=== PATIENT | male | born 1955 ===

== ENCOUNTER → 2023-12-10 09:54 | Outpatient (REF) | payer MEDICARE, SELFPAY ==
--- NOTE | 2023-12-10 10:04 | CA_ITS ---
Transthoracic Echocardiogram Patient (Last, First, Middle): Christiano Cortez, Gender: Male Date of : 1955 Age: 68 Procedure Date: 12/10/2023 Procedure Type: Transthoracic Echocardiogram Location: OP Height: 180.34 cm Weight: 104.33 kg BSA: 2.24 m2 Heart Rate: 72 bpm BP: 116 / 85 mmHg Medical Transcriptionist: LOUISA Referring MD: Susannah Olivas MD Symptoms: TIA G45.9 Study Quality: Adequate ECG Rhythm: Sinus Conclusions: - The left ventricular systolic function is normal. The calculated ejection fraction is 64% by biplane method. - There is moderate mitral annular calcification. - There is mild calcification of the aortic valve. - There is mild dilatation of the ascending aorta measuring 4.20 cm. Findings Left Ventricle Normal left ventricular cavity size. There is normal left ventricular wall thickness. The left ventricular systolic function is normal. The calculated ejection fraction is 64% by biplane method. There is no evidence of regional wall motion abnormalities. Evidence suggests grade I (mild) diastolic dysfunction. LV peak GLS -17.2%. Right Ventricle Mildly increased right ventricular cavity size. There is normal right ventricular systolic function. Atria Both atria are normal in size. Aortic Valve There is mild calcification of the aortic valve. There is no aortic valve stenosis. There is no aortic valve regurgitation. Mitral Valve There is moderate mitral annular calcification. There is no mitral valve regurgitation. There is no mitral valve stenosis. Pulmonic Valve The pulmonic valve is likely normal. Tricuspid Valve Normal tricuspid valve structure. There is trace tricuspid valve regurgitation. There is no evidence of pulmonary hypertension. Great Vessels The aortic arch is normal in size. There is mild dilatation of the ascending aorta measuring 4.20 cm. Venous The inferior vena cava is normal in size and collapses greater than 50% with inspiration. Pericardium/Pleural There is no evidence of pericardial effusion. Prior Study Comparison No prior study available for comparison. Measurements 2D Linear Measurements IVSd: 0.86 0.6-0.9/0.6-1.0 cm LVIDd: 4.60 3.9-5.3/4.2-5.9 cm LVIDd Index: 2.05 2.4-3.2/2.2-3.1 cm/m2 LVIDs: 3.21 2.0-3.6 cm LVPWd: 1.01 0.7-1.1 cm LA Diam: 2.90 2.7-3.8/3.0-4.0 cm LAIDs Index: 1.29 1.5-2.3 cm/m2 LV Mass: 180.84 67-162/88-224 g LV Mass Index: 80.73 43-95/49-115 g/m2 LVOT Diam: 2.30 3.0+(-)1.3 cm 2D Systolic Function EF 4C: 66.90 >55% EF 2C: 61.80 >55% EF BiP: 64.10 >55% Mitral Valve MV VTI: 0.51 MV Pk Davi: 1.47 MV Mn Davi: 0.86 MV Pk Grad: 9.00 MV Mn Grad: 3.00 MV Pk E: 1.10 MV PK A: 1.40 MV Decel Time: 472.00 E/A: 0.80 E'Lateral: 6.85 E'Medial: 4.46 E/E' Med: 24.70 E/E' Lat: 16.10 PHT: 138.00 MVA PHT: 1.59 MVA Continuity: 2.28 Decel [place]: 2.34 Aortic Valve AoV Pk Davi: 1.80 AoV Mn Davi: 1.19 AoV VTI: 0.39 AoV Pk Grad: 13.00 Aov Mn Grad: 7.00 SAGAR Cont.VTI: 2.99 LVOT LVOT Pk Davi: 1.22 LVOT Mn Davi: 0.87 LVOT VTI: 0.28 LVOT Pk Grad: 6.00 LVOT Mn Grad: 4.00 LVOT Diam: 2.30 LVOT Area: 4.15 Diastolic Function MV Pk E: 1.10 MV Pk A: 1.40 E/A: 0.80 E'Medial: 4.46 E/E' Med: 24.70 E' Laterial: 6.85 E/E' Lat: 16.10 Right Ventricle TAPSE (mm): 18.50 TVS' Davi: 11.70 Tricuspid Valve RA Press: 3.00 Great Vessels Aorta Sinus of Valsalva: 3.85 2.0-3.[address] Ridge: 3.33 1.7-3.4 cm Ao Asc: 4.20 2.1-3.4 cm Ao Arch: 3.20 Updated in Other Vendor System with Status of Final Wilfredo Butts MD electronically signed on 12/11/2023 8:43:59 AM with status of Final
== END ==
LOC: HO.CARD 09:54
PROVIDERS: PCP Student in an Organized Health Care Education/Training Program; Visit Provider Student in an Organized Health Care Education/Training Program
DX: G45.9 Transient cerebral ischemic attack, unspecified (principal)
CPT/HCPCS: 93306; 93356

== ENCOUNTER → 2023-12-10 10:04 | Outpatient (BNV) | payer MEDICARE, SELFPAY | PROVIDERS: PCP Student in an Organized Health Care Education/Training Program; Visit Provider Internal Medicine | DX: I34.81 Nonrheumatic mitral (valve) annulus calcification (principal); I35.8 Other nonrheumatic aortic valve disorders | CPT/HCPCS: 93306 ==

== ENCOUNTER 2025-02-04 09:20 | Outpatient (AMB) | payer MEDICARE, SELFPAY ==
--- NOTE | 2025-02-04 09:26 | MHC.OFFVIS ---
Vital Signs 02/04/25 09:29 Height 5 ft 10 in Weight 264 lb BMI 37.9 BP 101/65 Blood Pressure Location Lt brachial Position Sitting Pulse 79 Intake Visit Reasons: Colonoscopy screening Intake Note: New patient in office today Cc: Patient reports occasional diarrhea, and abd pain sometimes. Denies other GI symptoms today. Last colonoscopy about 3 years in [place], [place] per patient. Social Media Job Titles Required: No Accompanied by: Self / Same As Patient Allergies cefaclor Allergy (Severe, Verified 02/04/25 09:31) Anaphylaxis HPI HPI Colonoscopy screening: Details: Patient is a 69-year-old male who comes in today for colonoscopy screening. He reports intermittent ab pain approx 3x/months. Relieved with antacid. Denies regurgitation, heart burn or dsyphagia He reports diarrhea approx 2x/month. Type 6 on Petroleum stool chart. Reports mx episode can occur in a day, unable to quantity # of occurrence Associated symptoms: denies Aggravating factors: sugar free or alcohols 69-year-old male here for preprocedural meeting to discuss a screening colonoscopy. He is [facility] by [facility] [place]. PMX Diabetes-on Trulicity Memory loss Supracondylar fracture Depression BPH Constipation * SURGICAL HISTORY See history in chart Colonoscopy-2021 [facility] negative study * ALLERGIES Cefaclor * LABS SUPPLIED BY PCP: 07/2024 unremarkable CBC, unremarkable hepatic panel, unremarkable renal panel, TSH 3.79 TODAY'S VISIT (with Jeannette) Alleviating attempts: imdoium if severe Patient denies: systemic symptoms, n/v, appetite changes, unintentional wt loss, melena/hematochezia or bladder changes Share last colonoscopy was 3 years ago in [place], [place]. Unsure of results. He denies cardiopulmonary history. Also denies difficulty with anesthesia/sedation. Reports most recent a1c was stable, able to remove glipizide from regimen last month. Shares Glucophage was discontinued awhile ago . he denies daily blood glucose checks. Social hx: 1oz of Congolese whiskey approx 1-2x/week marijuana for insomnia up to three days/weekf, denies other recreational drug use Non-smoker Denies personal CA Family hx: Denies family hx of gallbladder disease Father lung CA and ? ear related CA. [place] early 70s [facility] Medical History (Updated 02/04/25 @ 10:48 by ADELINA Chappell) Abdominal pain Diarrhea Surgical History S/P bariatric surgery H/O elbow surgery H/O Spinal surgery H/O colonoscopy Family History Father Lung cancer Paternal Aunt Cancer Social History Alcohol intake: current Alcohol intake frequency: holidays/special occasions only Patient Tobacco Use Status: Never used Tobacco Use of substances other than those prescribed or required for medical reasons: No Review of Systems Card Reports no additional complaints Resp Reports no additional complaints GI Reports abdominal pain, Reports bloating and Reports diarrhea Physical Exam Vital Signs: Last Vital Signs Pulse 79 02/04/25 09:29 BP 101/65 02/04/25 09:29 BMI result Body Mass Index 37.9 Const General: healthy appearing, no acute distress and well developed Nutritional Appearance: well nourished Orientation/consciousness: patient oriented x3 HEENT Head: Yes normal to inspection, Yes normocephalic and Yes atraumatic Face and sinus: Yes normal facial exam Eyes General: appearance normal, both eyes and all related structures Neck Neck: Yes normal visual inspection and Yes full ROM Resp Effort & Inspection: normal respiratory effort, able to speak in complete sentences, no tracheal deviation and symmetric chest movement Auscultation: clear to auscultation bilaterally Cardio Jugular venous distension: no JVD Rate: regular rate Rhythm: regular rhythm Heart sounds: S1 normal heart sound present, S2 normal heart sound present, no gallops and no murmurs GI Inspection: Yes normal to inspection and No distended Palpation (GI): Soft to palpation, not firm, nontender, No hepatosplenomegaly present and Other GI palpation findings present (non-tender) Auscultation: normal bowel sounds Neuro General: patient oriented x3 Gait exam (Neuro): Normal gait present and Assistive device used (cane) Psych Appearance: grossly normal Mental Status: mental status grossly normal Speech and movement: Normal speech and movement present Affect: normal affect Attitude: cooperative Thought process: Normal thought process present Thought content: Normal thought content present Insight: Good insight present (Psych) Judgement: Good judgement present (Psych) Assessment & Plan Assessment & Plan (1) Diarrhea: Code(s): R19.7 - Diarrhea, unspecified Category: Medical Plan: diet induced. Encouraged to read labels to avoid triggers. Continue supportive care. monitor symptoms (2) Abdominal pain: Code(s): R10.9 - Unspecified abdominal pain Category: Medical Plan: infrequent. DDX reviewed: gallbladder VS medication induced VS ?. Discussed ultrasound to eval gallbladder. However, shared decision-making to hold given infrequent symptoms and negative family history. Colonoscopy as below. Continue supportive care. Monitor. (3) Preoperative clearance: Code(s): Z01.818 - Encounter for other preprocedural examination Plan: Basic and monitoring labs today. Colonoscopy screening. (4) Encounter for screening colonoscopy: Code(s): Z12.11 - Encounter for screening for malignant neoplasm of colon Plan: Results of last colonoscopy unknown. Given intermittent abdominal pain and diarrhea will proceed with colonoscopy. Education on prep-patient understands which medications to hold prior to procedure. Nursing will follow-up closer to procedure to review prep education. (5) Diabetes: Code(s): E11.9 - Type 2 diabetes mellitus without complications Category: Medical Plan: [id number]. Will obtain updated A1c. Reviewed medications to hold prior to procedure-metformin, day of; Mounjaro 7 days prior. (6) Pre-op examination: Code(s): Z01.818 - Encounter for other preprocedural examination Category: Medical Plan (with Jeannette) Alleviating attempts: Imodium if severe Patient denies: systemic symptoms, n/v, appetite changes, unintentional wt loss or melena/hematochezia Share last colonoscopy was 3 years ago in [place], [place]. Unsure of results. He denies cardiopulmonary history. Also denies difficulty with anesthesia/sedation. Reports most recent a1c was stable, able to remove glipizide from regimen last most. Shares Glucophage was discontinued awhile ago . he denies daily blood glucose checks. Social hx: 1oz of Congolese whiskey approx 1-2x/week marijuana for insomnia up to three days/weekf, denies other recreational drug use Non-smoker Denies personal CA Family hx: Denies family hx of gallbladder disease Father lung CA and ? ear related CA. [place] Time: I spent a total of 30 minutes on the date of encounter which includes: Preparing to see the patient (reviewed previous documentation, test results and medical history) Performing a medically appropriate exam and/or evaluation Ordering medications, tests, and procedures Documenting clinical information in the health record Orders: Orders Comprehensive Met. Panel 02/04/25 ADELINA Chappell Z01.818 - Encounter for other preprocedural examination Complete Blood Count Auto Diff 02/04/25 ADELINA Chappell Z01.818 - Encounter for other preprocedural examination Hemoglobin A1c 02/04/25 ADELINA Chappell Z01.818 - Encounter for other preprocedural examination Complete Blood Count Auto Diff 02/04/25 Jeannette Bay CNP Z01.818 - Encounter for other preprocedural examination Hemoglobin A1c 02/04/25 Jeannette Bay CNP E11.9 - Type 2 diabetes mellitus without complications IRON PROFILE 02/04/25 Jeannette Bay CNP D64.9 - Anemia, unspecified Colonoscopy - GI Use Only 02/04/25 Jeannette Bay CNP Comprehensive Met. Panel 02/04/25 Jeannette Bay CNP Z01.818 - Encounter for other preprocedural examination Medications: New peg 3350-electrolytes 236-22.74-6.74 -5.86 gram (Golytely) until fecal effluent is clear; do not exceed a total volume of 2,000 mL 240 mL PO Q10M 1 day 4,000 mL 0RF ADELINA Chappell Z12.11 - Encounter for screening for malignant neoplasm of colon bisacodyl (Dulcolax (bisacodyl)) 10 mg (2 x 5 mg) PO BEDTIME 2 days 4 tabs 0RF ADELINA Chappell bisacodyl pre colonoscopy instructions 5 mg PO ONCE 4 tabs 0RF Jeannette Bay CNP polyethylene glycol 3350 (Miralax) pre colonoscopy prep instructions 238 grams PO ONCE 238 grams 0RF Jeannette Bay CNP Coding Level of Care Code New Pt New Pt Level 3 (73756) Patient Type New Diagnoses Diarrhea R19.7 Abdominal pain R10.9 Preoperative clearance Z01.818 Encounter for screening colonoscopy Z12.11 Diabetes E11.9 Pre-op examination Z01.818
[2025-02-04 09:29] VITALS: BP 101/65; PULSE 79; BMI 37.9
--- OUTSIDE RECORDS SUMMARY | 2025-02-04 09:52 | XMS_ITS | Clinical Summary ---
Author Organization [facility] Address [address] [place] [address] Care Team Providers Care Steam Boiler Fireman Name Role Phone Unavailable Primary Care Provider Unavailabl e Allergies Active Allergy Reactions Criticality Noted Date Comments Cefaclor Swelling High 02/05/1995 swollen Other reaction(s): Other (See Comments) swollen swollen Other reaction(s): Swelling/Edema Severity: Swelling/Edema - Unknown; Ingredients: cefaclor; Type: Drug; Comment: CECLOR; Other reaction(s): Other (See Comments), Other (See Comments) swollen swollen Other reaction(s): Swelling/Edema Severity: Swelling/Edema - Unknown; Ingredients: cefaclor; Type: Drug; Comment: CECLOR; Other reaction(s): Other (See Comments), Other (See Comments) swollen swollen Social History Tobacco Use Types Packs/Day Years Used Date Smoking Tobacco: Never Assessed Sex and Gender Information Value Date Recorded Sex Assigned at Male 11/14/2022 1:45 PM EST Gender Identity Not on file Sexual Orientation Not on file Job Start Date Occupation Industry Not on file Not on file Not on file Plan of Treatment Health Maintenance Due Date Last Done Comments Hepatitis C Screening 1955 COVID-19 Vaccine (#1) 02[birth year]/1956 Depression Screening 1967 Preventative Health Evaluation 1973 Colon Cancer Screening (Colonoscopy) 2000 Hepatitis B Vaccines (3 of 3 - 19+ 3-dose series) 02/02/2009 09/07/2008, 09/07/2008, 08/04/2008, Additional history exists Fall Risk Assessment 2020 Influenza Vaccine (#1) 2024 2, 07/26/2021, 07/08/2020, Additional history exists DTap / Tdap / Td (3 - Td or Tdap) 05/14/2029 05/14/2019, 08/04/2008 RSV Adult > 60+ Yrs or (1 - 1-dose 75+ series) 2030 Shingrix-Zoster Vaccine Completed 09/25/20, 09/25/2019, 07/23/2019, Additional history exists Pneumococcal Vaccine Completed 08/10/2021, 04/05/2021, 08/02/2015 RSV Ped < 20 months Aged Out No longe r eligible based on patient's age to complete this topic
--- OUTSIDE RECORDS SUMMARY | 2025-02-04 09:52 | XMS_ITS | Clinical Summary ---
Author Organization [facility] Address [address] [place] [address] Care Team Providers Care Bush Regenerator Name Role Phone Susannah Harmon Primary Care Provider [phone] Allergies Active Allergy Reactions Criticality Noted Date Comments Cefaclor Other (see comments),Swelling High 02/05/1995 swollen Other reaction(s): Other (See Comments) swollen swollen Other reaction(s): Swelling/Edema Severity: Swelling/Edema - Unknown; Ingredients: cefaclor; Type: Drug; Comment: CECLOR; Other reaction(s): Other (See Comments), Other (See Comments) swollen swollen Other reaction(s): Swelling/Edema Severity: Swelling/Edema - Unknown; Ingredients: cefaclor; Type: Drug; Comment: CECLOR; Other reaction(s): Other (See Comments), Other (See Comments) swollen swollen swollen Other reaction(s): Swelling/Edema Severity: Swelling/Edema - Unknown; Ingredients: cefaclor; Type: Drug; Comment: CECLOR; Other reaction(s): Other (See Comments), Other (See Comments) swollen swollen Other reaction(s): Other (See Comments) swollen swollen Other reaction(s): Swelling/Edema Severity: Swelling/Edema - Unknown; Ingredients: cefaclor; Type: Drug; Comment: CECLOR; Other reaction(s): Other (See Comments), Other (See Comments) swollen swollen swollen Other reaction(s): Other (See Comments) swollen swollen Other reaction(s): Swelling/Edema Severity: Swelling/Edema - Unknown; Ingredients: cefaclor; Type: Drug; Comment: CECLOR; Other reaction(s): Other (See Comments), Other (See Comments) swollen swollen Other reaction(s): Swelling/Edema Severity: Swelling/Edema - Unknown; Ingredients: cefaclor; Type: Drug; Comment: CECLOR; Other reaction(s): Other (See Comments), Other (See Comments) swollen swollen Medications lidocaine (XYLOCAINE) 5% ointment Apply up to 3 times daily as needed for thumb pain. 60 g 2 01/21/2024 Active Active Problems No known active problems Social History Tobacco Use Types Packs/Day Years Used Date Smoking Tobacco: Never Passive Smoke Exposure: Past Smokeless Tobacco: Never Tobacco Cessation:Counseling Given: Not Answered Alcohol Use Standard Drinks/Week Comments Yes 0 (1 standard drink = 0.6 oz pur e alcohol) occasionally Sex and Gender Information Value Date Recorded Sex Assigned at Male 01/14/2024 3:44 PM EDT Legal Sex Male 3:02 PM EST Gender Identity Male 01/14/2024 3:44 PM EDT Sexual Orientation Choose not to disclose 2023 3:44 PM EDT Last Filed Vital Signs Vital Sign Reading Time Taken Comments Blood Pressure 101/74 01/21/2024 10:52 AM EDT Pulse 74 01/21/2024 10:52 AM EDT Temperature 36.5 ??C (97.7 ??F) 01/21/2024 10:52 AM E DT Respiratory Rate - - Oxygen Saturation - - Inhaled Oxygen Concentration - - Weight 104.3 kg (230 lb) 01/21/2024 10:52 AM EDT Height 180.3 cm (5' 11 ) 01/21/2024 10:52 AM EDT Body Mass Index 32.08 01/21/2024 10:52 AM EDT Plan of Treatment Health Maintenance Due Date Last Done Comments Cologuard 1955 Colon Cancer Screening 1955 Colonoscopy 1955 FOBT / Fit Test 1955 Hepatitis C Screening 1955 Sigmoidoscopy 1955 Hepatitis B Vaccines (2 of 3 - 19+ 3-dose series) 10/05/2008 09/07/2008, 09/07/2008, 08/04/2008, Additional history exists COVID-19 Vaccine (2023-2 5 season) 2024 08/05/2023, 04/15/2023, 07/25/2022, Additional history exists Alcohol/Substance Use Screening 11/04/2024 Depression Screening and Follow-Up 11/04/2024 Health Care Proxy Review 11/04/2024 Social Drivers of Health Mary ual Screening 11/04/2024 Influenza Vaccine (Season Ended) 2025 08/05/2023, 07/25/2022, 07/26/2021, Additional history exists DTaP,Tdap,and Td Vaccines (3 - Td or Tdap) 05/14/2029 05/14/2019, 08/04/2008 Zoster Vaccines Completed 09/25/2019, 09/05, 07/23/2019, Additional history exists Pneumococcal Vaccine: 50+ Years Completed 08/10/2021, 04/05/2021, 08/02/2015 RSV Vaccine (60+ years old a nd patients) Completed 09/22/[address] [id number] [facility] Care Teams Bush Regenerator Relationship Specialty Start Date End Date CisconathalyrosemarieSusannah [address] [place] [address], [address] COURTNEY TORRES [id number] PCP - General 10/31/23
--- OUTSIDE RECORDS SUMMARY | 2025-02-04 09:52 | XMS_ITS | Encounter Summary ---
Author Organization [facility] Address [address] [place] [address] Care Team Providers Care Advertising Analyst Name Role Phone Physician, No Pcp Primary Care Provider Unavaila ble Encounter Details Date Type Department Care Team (Late st Contact Info) Description 12/22/2021 Lab Requisition [facility] [address] [place] [address] Jose Montilla MD [address] [id number] Iron deficiency anemia, unspecified Social History Tobacco Use Types Packs/Day Years Used Date Smoking Tobacco: Never Assessed Sex and Gender Information Value Date Recorded Sex Assigned at Not on file Legal Sex Male 1:31 PM EST Gender Identity Not on file Sexual Orientation Not on file documented as of this encounter Plan of Treatment Not on file documented as of this encounter Procedures Procedure Name Priority Date/Time Associated Diagnosis Comments TISSUE EXAM Routine 12/22/2021 Iron deficiency anemia, unspecified documented in this encounter Results * Tissue exam (12/22/2021) Final Diagnosis A. Duodenum Biopsy: Histologically unremarkable duodenal mucosa. B. Gastric Biopsy: Histologically unremarkable gastric antral and fundic type mucosa. H. pylori immunostain is negative. C. GE Junction Biopsy: Chronic inactive carditis, negative for intestinal metaplasia. 12/26/2021 2:19 PM EST [facility] ([facility]) [facility] Clinical Information Evaluate for celiac sprue. Rule out H. pylori. Rule out Felix's esophagus. 12/26/2021 2:19 PM EST [facility] Gross Description A. Small Intestine, Duodenum, Duodenum biopsy: Duodenum biopsy . 2 tissues up to 0.3 cm. ES Block A1. B. Stomach, Gastric biopsy: Gastric biopsy . 2 tissues up to 0.3 cm. ES Block B1. C. Esophagus, GE junction biopsy: GE junction biopsy . 2 tissues up to 0.3 cm. ES Block C1. 12/26/2021 2:19 PM EST [facility] Disclaimer Gross description reviewed by a pathologist within 24 hours. The technical components of this case were performed at [facility] [address] [place] [address] The interpretation of this case included the use of immunohistochemist ry, in situ hybridization, and/or special stains. These tests have not been cleared or approved by the U.S. Food and Drug Administration. The FDA has determined that such clearance or approval is not necessary. These tests are used for clinical purposes and should not be regarded as investigational or for research. This laboratory is certified to perform high complexity testing under the Clinical Laboratory Improvement Amendments of 1998. Positive and negative controls were performed and evaluated for each test (internal controls used if applicable) and deemed adequate for diagnostic interpretation. In situ hybridization assays have been validated pursuant to the CLIA regulations and are used for clinical purposes. 12/26/2021 2:19 PM EST [facility] Tissue Esophageal structure / Unknown 12/22/2021 12/25/2021 8:10 AM EST Tissue specimen (specimen) Stomach structure / Unknown 12/22/2021 12/25/2021 8:10 AM EST Tissue specimen (specimen) Esophageal structure / Unknown 12/22/2021 12/25/2021 8:10 AM EST us Jose Montilla MD LAB PATHOLOGY ORDERABLES Final R esult [facility] [address] [place] [address] documented in this encounter Visit Diagnoses Diagnosis Iron deficiency anemia, unspecified documented in this encounter Care Teams Advertising Analyst Relationship Specialty Start Date End Date Physician, No Pcp PCP - General 12/22/21 documented as of this encounter
--- OUTSIDE RECORDS SUMMARY | 2025-02-04 09:52 | XMS_ITS | Referral Summary ---
Author Organization [facility] Address [address] [place] [address] Care Team Providers Care Line Technician Name Role Phone Susannah Harmon Primary Care Provider [phone] Allergies Active Allergy Reactions Criticality Noted Date [...] 01/21/2024 10:52 AM EDT Plan of Treatment Not on file Insurance [facility] SU[facility] Care Teams Line Technician Relationship Specialty Start Date End Date Susannah Harmon [address] [place] [address], [address] MELISSACOURTNEY SAENZ [id number] PCP - General 10/31/23
--- OUTSIDE RECORDS SUMMARY | 2025-02-04 09:52 | XMS_ITS | Clinical Summary ---
Author Organization [facility] Address [address] [place] [address] Care Team Providers Care Financial Market Dealer Name Role Phone Susannah Olivas MD Primary Care Provider Social History Tobacco Use Types Packs/Day Years Used Date Smoking Tobacco: Never Assessed Sex and Gender Information Value Date Recorded Sex Assigned at Not on file Gender Identity Not on file Sexual Orientation Not on file Plan of Treatment Health Maintenance Due Date Last Done Comments Hepatitis C Virus Screening 1955 DTaP/Tdap/Td Vaccines (1 - Tdap) 1974 Colonoscopy 2000 Pneumococcal Vaccines 50+ (1 of 1 - PCV) 2005 Zoster (Shingles) Vaccine (1 of 2) 2005 Influenza Vaccine 06/04/2024 COVID-19 Vaccine (1 - 2023-2 5 season) 2024 RSV Vaccine 60 years and old er and Patients (1 - 1-dose 75+ series) 2030 Hepatitis B Vaccines Aged Out No long er eligible based on patient's age to complete this topic Care Teams Financial Market Dealer Relationship Specialty Start Date End Date Susannah Olivas MD [address] [place], [place] [id number] [id number] PCP - General Family Medicine 09/21/22
--- OUTSIDE RECORDS SUMMARY | 2025-02-04 09:52 | XMS_ITS ---
Author Name [facility] Organization Unknown Problems Problem Status Onset Date Problem Type Date of Resolution Source Trigger middle finger of right hand active EncounterDiagnosisAct HHCCT Osteoarthritis of multiple joints, unspecified osteoarthritis type active EncounterDiagnosisAct HHCCT Care Team Organization Name Specialty Phone Email Start Date End [facility] KAHLIL PRATT Primary Care 11/06/202201/2023
--- OUTSIDE RECORDS SUMMARY | 2025-02-04 09:52 | XMS_ITS | Clinical Summary ---
Author Organization [facility] Address [address] [place] [address] Phone Care Team Providers Care Accordion Tuner Name Role Phone Physician, No Pcp Primary Care Provider Unavaila ble Social History Tobacco Use Types Packs/Day Years Used Date Smoking Tobacco: Never Assessed Sex and Gender Information Value Date Recorded Sex Assigned at Not on file Legal Sex Male 1:31 PM EST Gender Identity Not on file Sexual Orientation Not on file Plan of Treatment Health Maintenance Due Date Last Done Comments Diabetes: Annual Foot Exam 1965 Diabetes: Annual Retina Eye Exam 1965 IPV Vaccines (2 of 3 - Adult catch-up series) 09/01/2008 08/04/2008 Hepatitis B Vaccines (3 of 3 - Hep B Twinrix 3-dose series) 02/05/2009 09/07/2008, 08/04/2008 Abdominal Aortic Aneurysm (AAA) Screen 12/22/2021 Cholesterol Screening (Lipid Panel) 12/22/2021 Colorectal Cancer Screening: Colonoscopy 12/22/2021 Depression Screening 12/22/2021 Falls Risk Assessment 12/22/2021 Hepatitis C Screening 12/22/2021 Medicare Annual Wellness Visit 12/22/2021 Social Influencers of Health Screening 12/22/2021 Diabetes: Annual Urine Albumin-Creatinine Ratio (uACR) 01/10/2022 Diabetes: Blood Sugar Control Test (HGBA1C) 01/10/2022 Diabetes: Annual GFR (Glomerular Filtration Rate) 03/14/2024 03/14/2023 COVID-19 Vaccine ( season) 2024 11/29/2020, 11/02/2020 Influenza Vaccine (Season Ended) 2025 07/26/2021, 07/08/2020, 07/08/2020, Additional history exists DTaP,Tdap,and Td Vaccines (3 - Td or Tdap) 05/14/2029 05/14/2019, 08/04/2008 RSV Immunization Adult Patients (1 - 1-dose 75+ series) 2030 Hepatitis A Vaccines Aged Out 10/08/2016, 09/07/2008, 08/04/2008 No longer eligible based on patient's age to complete this topic Zoster Vaccines Completed 09/25/2019, 07/05, 10/07/2015 Pneumococcal Vaccine: 50+ Years Completed 08/10/2021, 04/05/2021, 08/02/2015 HIB Vaccines Aged Out No longer eligi ble based on patient's age to complete this topic HPV Vaccines Aged Out No longer eligi ble based on patient's age to complete this topic MMR Vaccines Aged Out No longer eligi ble based on patient's age to complete this topic Meningococcal ACWY Vaccine Aged Out N o longer eligible based on patient's age to complete this topic Meningococcal B Vacine Aged Out No lo nger eligible based on patient's age to complete this topic RSV Immunization Patients Under 20 months Aged Out No longer eligible based on patient's age to complete this topic Varicella Vaccines Aged Out No longer eligible based on patient's age to complete this topic Insurance MEDICARE [facility] Care Teams Accordion Tuner Relationship Specialty Start Date End Date Physician, Arlyn Pcp PCP - General 12/22/21
== END 2025-02-04 10:47 | disposition home or self-care (01) ==
PROVIDERS: PCP Student in an Organized Health Care Education/Training Program; Visit Provider Nurse Practitioner
DX: R19.7 Diarrhea, unspecified (principal); R10.9 Unspecified abdominal pain; Z12.11 Encounter for screening for malignant neoplasm of colon; E11.9 Type 2 diabetes mellitus without complications
CPT/HCPCS: 99203

== ENCOUNTER 2025-02-04 09:20 | Outpatient (REF) | payer MEDICARE, SELFPAY ==
[2025-02-04 11:06] LABS: MANUAL DIFF FLAG NO
[2025-02-04 11:54] LABS: Basophils Percent Auto 0.4 % (0-2); Eosinophils Absolute Auto 0.1 X10*3/uL (0.0-0.4); Eosinophils Percent Auto 0.9 % (0-4); Hemoglobin 12.5 g/dl (14.0-18.0); Imm Gran Abs Auto 0.02 X10*3/uL (0.00-0.03); Imm Gran Pct Auto 0.3 % (0.0-0.4); Lymphocytes Absolute Auto 2.3 X10*3/uL (1.2-4.9); Lymphocytes Percent Auto 30.5 % (20-40); Mean Corpuscular HGB Conc 32.1 g/dl (31.0-36.0); Mean Corpuscular Hemoglobin 25.8 pg (27.0-33.0); Mean Corpuscular Volume 80.4 fL (80.0-98.0); Mean Platelet Volume 9.9 fL (9.4-12.4); Monocytes Absolute Auto 0.6 X10*3/uL (0.1-1.2); Monocytes Percent Auto 7.5 % (2-11); Neutrophils Absolute Auto 4.6 x10*3/uL (2.0-8.3); Neutrophils Percent Auto 60.4 % (45-73); Platelet Count 215 X10*3/uL (160-400); Red Blood Count 4.85 X10*6/uL (4.60-5.80); Red Cell Distribution Width 17.2 % (11.0-16.0); White Blood Count 7.6 X10*3/uL (4.8-10.8)
[2025-02-04 11:58] LABS: Estimated Average Glucose 126 mg/dL; Hemoglobin A1C 142.1813 umol/L; Total Hemoglobin (HGBA1C) 3358.1628 umol/L
--- OUTSIDE RECORDS SUMMARY | 2025-02-04 12:02 | XMS_ITS | Encounter Summary ---
Author Organization [facility] Address [address] [place] [address] Care Team Providers Care Treasury Agent Name Role Phone Physician, No Pcp Primary Care Provider Unavaila ble Encounter Details Date Type Department Care Team (Late st Contact Info) Description 12/22/2021 Lab Requisition [facility] [address] [place] [address] Jose Montilla MD [address] [id number] Iron deficiency anemia, unspecified Social History Tobacco [...] for intestinal metaplasia. 12/26/2021 2:19 PM EST [facility] Clinical Information Evaluate for celiac sprue. Rule out H. pylori. Rule out Felix's esophagus. 12/26/2021 2:19 PM EST [facility] Gross Description A. Small Intestine, Duodenum, Duodenum biopsy: Duodenum biopsy . 2 tissues up to 0.3 cm. ES Block A1. B. Stomach, Gastric biopsy: Gastric biopsy . 2 tissues up to 0.3 cm. ES Block B1. C. Esophagus, GE junction biopsy: GE junction biopsy . 2 tissues up to 0.3 cm. ES Block C1. 12/26/2021 2:19 PM EST [facility] Disclaimer Gross description reviewed by a pathologist within 24 hours. The technical components of this case were performed at [facility] [address] [place] [address] The interpretation of this case included the [...] for clinical purposes. 12/26/2021 2:19 PM EST [facility] Tissue Esophageal structure / Unknown 12/22/2021 12/25/2021 8:10 AM EST Tissue specimen (specimen) Stomach structure / Unknown 12/22/2021 12/25/2021 8:10 AM EST Tissue specimen (specimen) Esophageal structure / Unknown 12/22/2021 12/25/2021 8:10 AM EST us Jose Montilla MD LAB PATHOLOGY ORDERABLES Final R esult [facility] [address] [place] [address] documented in this encounter Visit Diagnoses Diagnosis Iron deficiency anemia, unspecified documented in this encounter Care Teams Treasury Agent Relationship Specialty Start Date End Date Physician, No Pcp PCP - General 12/22/21 documented as of this encounter
--- OUTSIDE RECORDS SUMMARY | 2025-02-04 12:02 | XMS_ITS | Clinical Summary ---
Author Organization [facility] Address [address] [place] [address] Phone Care Team Providers Care Building Mover Name Role Phone Physician, No Pcp Primary [...] age to complete this topic Insurance MEDICARE [facility] Care Teams Building Mover Relationship Specialty Start Date End Date Physician, Arlyn Pcp PCP - General 12/22/21
--- OUTSIDE RECORDS SUMMARY | 2025-02-04 12:02 | XMS_ITS | Clinical Summary ---
Author Organization [facility] Address [address] [place] [address] Care Team Providers Care Biological Technician Name Role Phone Unavailable Primary Care Provider [...]
--- OUTSIDE RECORDS SUMMARY | 2025-02-04 12:02 | XMS_ITS | Referral Summary ---
Author Organization [facility] Address [address] [place] [address] Care Team Providers Care Prosthetic Makeup Designer Name Role Phone Susannah Harmon Primary Care Provider [phone] Allergies Active Allergy Reactions Criticality Noted Date [...] Plan of Treatment Not on file Insurance [facility] SU[facility] Care Teams Prosthetic Makeup Designer Relationship Specialty Start Date End Date Susannah Harmon [address] [place] [address], [address] MELISSACOURTNEY SAENZ [id number] PCP - General 10/31/23
--- OUTSIDE RECORDS SUMMARY | 2025-02-04 12:02 | XMS_ITS | Clinical Summary ---
Author Organization [facility] Address [address] [place] [address] Care Team Providers Care Research And Development Manager Name Role Phone Susannah Olivas MD Primary Care Provider [phone] Social History Tobacco Use Types Packs/Day Years [...] age to complete this topic Care Teams Research And Development Manager Relationship Specialty Start Date End Date Susannah Olivas MD [address] [place], [place] [address]C[place] [id number] PCP - General Family Medicine 09/21/22
--- OUTSIDE RECORDS SUMMARY | 2025-02-04 12:02 | XMS_ITS | Clinical Summary ---
Author Organization [facility] Address [address] [place] [address] Care Team Providers Care Airline Security Representative Name Role Phone Susannah aHrmon Primary Care Provider [phone] Allergies Active Allergy Reactions Criticality Noted Date [...] old a nd patients) Completed 09/22/20[place] [id number] [facility] SU[facility] Care Teams Airline Security Representative Relationship Specialty Start Date End Date CisconathalyrosemarieSusannah [address] [place] [address], [address] COURTNEY TORRES [id number] PCP - General 10/31/23
[2025-02-04 12:28] LABS: Alanine Aminotransferase 25 U/L (0-40); Alkaline Phosphatase 64 U/L (39-117); Anion Gap 9 (12-20); Aspartate Amino Transferase 20 U/L (5-37); Bilirubin Total 0.6 mg/dL (0.0-1.0); Blood Urea Nitrogen 18 mg/dL (9-16); Carbon Dioxide 30 mmol/L (22-29); Chloride 106 mmol/L (96-108); Estimated Glomerular Filt Rate > 60; Glucose Random 114 mg/dL (60-115); Potassium 4.5 mmol/L (3.3-5.1); Sodium 140 mmol/L (135-145); Total Protein 6.4 g/dL (6.5-8.0)
== END 2025-02-04 09:21 | disposition home or self-care (01) ==
LOC: HO.LAB 09:20
PROVIDERS: PCP Student in an Organized Health Care Education/Training Program; Visit Provider Nurse Practitioner
DX: Z01.812 Encounter for preprocedural laboratory examination (principal); R19.7 Diarrhea, unspecified; R10.9 Unspecified abdominal pain; E11.9 Type 2 diabetes mellitus without complications; Z79.85 Long-term (current) use of injectable non-insulin antidiabetic drugs
CPT/HCPCS: 36415; 80053; 83036; 85025; 99202

== ENCOUNTER 2025-04-14 07:58 | Day surgery (SDC) | payer MEDICARE, SELFPAY ==
[2025-04-12 15:07] VITALS: BMI 37.9
--- NOTE | 2025-04-13 11:47 | P.CONAN_ITS ---
Documented by User: Mary Rios NP 04/13/25 11:48 HPI - Anesthesia Eval Consult details Narrative: 69yo M for Colonoscopy Anesthesia Pre-Procedure Meds Is the patient on any of the following meds?: GLP1/DPP4 and SGLT2 Inhib PMFSH Active Problems Active Problems: All Active Problems Pre-op examination (Acute) Supracondylar fracture of humerus (Acute) Memory loss (Acute) Depression (Acute) Diabetes (Acute) Abdominal pain (Acute) Diarrhea (Acute) Past Medical History Medical History (Updated 04/12/25 @ 15:05 by Bharti Reyna RN) Memory loss Diabetes Depression Abdominal pain Diarrhea Family History Family History Father Lung cancer Paternal Aunt Cancer Surgical History Surgical History S/P bariatric surgery H/O elbow surgery H/O Spinal surgery H/O colonoscopy Social History Social History Are you a primary health care liaison to a significant other at home: No Do you presently have visiting nurse or other home services: No Alcohol intake: current Alcohol intake frequency: holidays/special occasions only Patient Tobacco Use Status: Never used Tobacco Use of substances other than those prescribed or required for medical reasons: Yes Substance Use Frequency: Occasionally Have you been hit, kicked, punched, or otherwise hurt by someone within the past year? If so, by whom?: No Are you DNR?: No Advance Directives: No Advance Directives Information Provided: Yes Poor oral hygiene: No Meds Allergies Allergy/AdvReac Type Severity Reaction Status Date / Time cefaclor Allergy Severe Anaphylaxis Verified 02/04/25 09:31 Home Medications ?Medication ?Instructions ?Recorded ?Confirmed ?Last Taken ?Type atorvastatin 80 mg tablet 80 mg PO DAILY 02/04/25 Unknown History bupropion HCl 150 mg 24 hr tablet, 150 mg PO DAILY 02/04/25 Unknown History extended release cholecalciferol (vitamin D3) 50 50 mcg PO DAILY 02/04/25 Unknown History mcg (2,000 unit) capsule dapagliflozin propanediol 5 mg 5 mg PO DAILY 02/04/25 04/09/25 History tablet (Farxiga) fish oil-dha-epa 1,200 mg-144 1 cap PO BID 02/04/25 04/07/25 History mg-216 mg capsule metformin 1,000 mg tablet 1,000 mg PO BID 02/04/25 Unknown History multivitamin 1 tab PO DAILY 02/04/25 Unknown History pyridoxine (vitamin B6) 100 mg 100 mg PO DAILY 02/04/25 Unknown History tablet sertraline 50 mg tablet 50 mg PO DAILY 02/04/25 Unknown History tamsulosin 0.4 mg capsule 0.8 mg PO DAILY 02/04/25 Unknown History tirzepatide 2.5 mg/0.5 mL 2.5 mg subcut QWEEK 02/04/25 04/06/25 History subcutaneous pen injector (Mounjaro) zolpidem 10 mg tablet 10 mg PO BEDTIME PRN 02/04/25 Unknown History Exam Height,Weight and Vital Signs: Height 5 ft 10 in Weight 119.748 kg Narrative Narrative: ECHO 2023 Conclusions: - The left ventricular systolic function is normal. The calculated ejection fraction is 64% by biplane method. - There is moderate mitral annular calcification. - There is mild calcification of the aortic valve. - There is mild dilatation of the ascending aorta measuring 4.20 cm. Assessment and Plan Assessment Anesthesia Assessment: Chart Reviewed Documented by User: Jennifer Pedro MD 04/14/25 09:15 [facility] Past Medical History Medical History (Updated 04/12/25 @ 15:05 by Bharti Reyna RN) Memory loss Diabetes Depression Abdominal pain Diarrhea Family History Family History Father Lung cancer Paternal Aunt Cancer Family history of problems with anesthesia: No Surgical History Surgical History S/P bariatric surgery H/O elbow surgery H/O Spinal surgery H/O colonoscopy History of Problems with Anesthesia: No Social History Social History Are you a primary health care liaison to a significant other at home: No Do you presently have visiting nurse or other home services: No Alcohol intake: current Alcohol intake frequency: holidays/special occasions only Patient Tobacco Use Status: Never used Tobacco Use of substances other than those prescribed or required for medical reasons: Yes Substance Use Frequency: Occasionally Have you been hit, kicked, punched, or otherwise hurt by someone within the past year? If so, by whom?: No Are you DNR?: No Advance Directives: No Advance Directives Information Provided: Yes Poor oral hygiene: No Meds Allergies Allergy/AdvReac Type Severity Reaction Status Date / Time cefaclor Allergy Severe Anaphylaxis Verified 02/04/25 09:31 Home Medications ?Medication ?Instructions ?Recorded ?Confirmed ?Last Taken ?Type atorvastatin 80 mg tablet 80 mg PO DAILY 02/04/25 Unknown History bupropion HCl 150 mg 24 hr tablet, 150 mg PO DAILY 02/04/25 Unknown History extended release cholecalciferol (vitamin D3) 50 50 mcg PO DAILY 02/04/25 Unknown History mcg (2,000 unit) capsule dapagliflozin propanediol 5 mg 5 mg PO DAILY 02/04/25 04/09/25 History tablet (Farxiga) fish oil-dha-epa 1,200 mg-144 1 cap PO BID 02/04/25 04/07/25 History mg-216 mg capsule metformin 1,000 mg tablet 1,000 mg PO BID 02/04/25 Unknown History multivitamin 1 tab PO DAILY 02/04/25 Unknown History pyridoxine (vitamin B6) 100 mg 100 mg PO DAILY 02/04/25 Unknown History tablet sertraline 50 mg tablet 50 mg PO DAILY 02/04/25 Unknown History tamsulosin 0.4 mg capsule 0.8 mg PO DAILY 02/04/25 Unknown History tirzepatide 2.5 mg/0.5 mL 2.5 mg subcut QWEEK 02/04/25 04/06/25 History subcutaneous pen injector (Mouncrisro) zolpidem 10 mg tablet 10 mg PO BEDTIME PRN 02/04/25 Unknown History Exam Airway Mallampati Class: III TM Dist: >3cm Neck ROM: Full Assessment and Plan Assessment Anesthesia Assessment: Anesthesia Plan Discussed Final Anesthetic Review Family History of Problems with Anesthesia: No History of Problems with Anesthesia: No NPO: Yes ASA Class: III Final Preanesthetic Review: No Changes in Pt Med Stat, Meds/Allgs Chart Reviewed, Consent Obtained/Reviewed and Anes Risks/Benef Reviewed Patient Risk: Intermediate Procedure Risk: Low Anesthetic Plan Anesthetic Plan: TIVA Disposition: Standard PACU
[2025-04-14 08:37] VITALS: BMI 30.9
[2025-04-14 08:59] VITALS: BP 103/64; PULSE 63; RESP 18; TEMP 36.3; O2SAT 96
[2025-04-14] MEDS: Lactated Ringers 1,000 ML 100 ML IVCONT (09:02)
[2025-04-14 09:13] LABS: Glucose, Whole Blood 102 mg/dL (60-115)
--- NOTE | 2025-04-14 09:43 | MHC.SHP ---
Pre-Procedural Eval Section A - 24 Hr Update-Section A only Date of Service: 04/14/25 Section B - Complete if H&P > 30 days Chief Complaint: Encounter for screening for malignant neoplasm of Relevant Family History (Specify if Yes): No Relevant Social History: None Present Medications: see Short Stay Collaborative assessment Medical History: Significant History (Abdominal pain Diarrhea) History of Previous Operations: Relevant previous surgery/procedure and date(s) ( S/P bariatric surgery H/O elbow surgery H/O Spinal surgery H/O colonoscopy) Allergies: Allergies Allergy/AdvReac Type Severity Reaction Status Date / Time cefaclor Allergy Severe Anaphylaxis Verified 02/04/25 09:31 Review of Systems Sugical H&P ROS: Negative: Constitution, Cardiovascular, Respiratory, Neurological, Psychiatric, Hem-Onc, Allergic/Immunologic, Gastrointestinal, Genitourinary, Musculoskeletal, Integumentary, Endocrine and Eyes/Ears/Nose/Throat Exam Surgical H&P Exam: Normal: HEENT, Normal: Heart, Normal: Lungs, Normal: Extremities, Normal: Abdomen, Normal: Skin and Normal: Neurological Plan Diagnosis/Plan: Unchanged I have reviewed the history and physical and performed a pertinent physical examination on my patient. No changes have occurred unless specified. Time Spent With Patient Time: Total time managing care of this patient today ____ minutes.
--- NOTE | 2025-04-14 10:41 | HO.OPN-COLON ---
Colonoscopy Operative Note Operative Note Date of Service: 04/14/25 Narrative: Operative Information Procedure Description: Colonoscopy Indication: screening Anesthesia: MAC COLONOSCOPY Instrument: Olympus variable stiffness pediatric scope 190L Colonoscopy Monitoring: Vital signs and clinical assessment, continuous EKG monitoring, Pulse oximetry, Carbon Dioxide monitoring and blood pressure monitoring were done throughout the procedure. Colon withdrawal time was 10 minutes. Procedure: The patient was placed in the left lateral decubitis position and pre-procedure medications were administered. After a digital rectal examination of the ano-rectum, the video colonoscope was inserted into the rectum and advanced through the colon to the cecum/TI. The colonoscope was slowly withdrawn in a retrograde panoramic fashion and the colon mucosa was carefully examined including a retroflexed view of the rectum. Findings and interventions are described below. Procedure Difficulty: difficult --had to apply colowrap during procedure--redundant colon Findings: Terminal Ileum-normal Cecum:normal Ascending Colon: normal Transverse Colon -normal Descending Colon:normal Sigmoid Colon: diverticulosis, 5-8 mm sessile polyp removed with cold snare Rectum: Retroflexion with small internal hemorrhoids seen, grade I Anorectum - normal Intervention: cold snare Colon preparation: [place] Bowel Preparation Scale Right colon; 2 Transverse colon: 2 Left colon; 1-2 (0 = Unprepared colon segment with mucosa not seen due to solid stool that cannot be cleared. 1 = Portion of mucosa of the colon segment seen, but other areas of the colon segment not well seen due to staining, residual stool and/or opaque liquid. 2 = Minor amount of residual staining, small fragments of stool and/or opaque liquid, but mucosa of colon segment seen well. 3 = Entire mucosa of colon segment seen well with no residual staining, small fragments of stool or opaque liquid) Impression and Post Procedure Diagnosis: diverticulosis colon polyp x 1 internal hemorrhoids Plan: High fiber diet leaflet Avoid straining at stool, epsom salts and sitz bath, anusol supps or cream Repeat Colonoscopy in 3 years due to fair prep on the left or earlier if clinically indicated (NEXT TIME start with colowrap and adult scope) Above findings were reviewed with the patient and relevant handouts were provided if indicated.
[2025-04-14 10:51] VITALS: BP 97/57; PULSE 63; RESP 15; TEMP 37.1; O2SAT 95
[2025-04-14 11:03] VITALS: BP 96/63; PULSE 63; RESP 15; O2SAT 95
[2025-04-14 11:15] VITALS: BP 104/64; PULSE 65; RESP 15; TEMP 37.2; O2SAT 100
== END 2025-04-14 12:12 | disposition home or self-care (01) ==
PROVIDERS: PCP Student in an Organized Health Care Education/Training Program; Visit Provider Internal Medicine Gastroenterology
PROC: 0DJD8ZZ Inspection of Lower Intestinal Tract, Via Natural or Artificial Opening Endoscopic (ICD-10-PCS; CPT 45378; principal; 2025-04-14 09:20)
DX: Z12.11 Encounter for screening for malignant neoplasm of colon (principal); D12.5 Benign neoplasm of sigmoid colon; K56.2 Volvulus; K57.30 Diverticulosis of large intestine without perforation or abscess without bleeding; K64.0 First degree hemorrhoids; R19.7 Diarrhea, unspecified; R10.9 Unspecified abdominal pain; R41.3 Other amnesia; E11.9 Type 2 diabetes mellitus without complications; F32.A Depression, unspecified; Z79.85 Long-term (current) use of injectable non-insulin antidiabetic drugs; Z79.899 Other long term (current) drug therapy; Z88.8 Allergy status to other drugs, medicaments and biological substances; Z98.84 Bariatric surgery status; Z98.890 Other specified postprocedural states
CPT/HCPCS: 45385; 82947; 88305; J2003; J2704

== ENCOUNTER → 2025-04-14 07:58 | Outpatient (BNV) | payer MEDICARE, SELFPAY | PROVIDERS: PCP Student in an Organized Health Care Education/Training Program; Visit Provider Internal Medicine Gastroenterology | DX: Z12.11 Encounter for screening for malignant neoplasm of colon (principal); D12.5 Benign neoplasm of sigmoid colon; K57.30 Diverticulosis of large intestine without perforation or abscess without bleeding; K64.0 First degree hemorrhoids | CPT/HCPCS: 45385 ==